=== PATIENT | female | born 1975 | race Caucasian/White ===

== ENCOUNTER → 2016-11-07 | Outpatient (CLI) | payer BC ==
[~2016-11-07] MED LIST: PRENTAB26 PO
== END | disposition home or self-care (01) ==
LOC: C.PAPS 15:39
PROVIDERS: ATTEND Obstetrics & Gynecology
DX: Z01.411 Encounter for gynecological examination (general) (routine) with abnormal findings (principal); R87.610 Atypical squamous cells of undetermined significance on cytologic smear of cervix (ASC-US)

== ENCOUNTER → 2016-11-07 | Outpatient (CLI) | payer BC ==
[2016-11-11 01:58] LABS: CHLAMYDIA TRACH RNA*** NOT DETECTED (NOT DETECTED); GC (NEIS GONORRHOEAE)RNA** NOT DETECTED (NOT DETECTED); TRICHOMONAS VAGINALIS RNA** NOT DETECTED (NOT DETECTED)
== END | disposition home or self-care (01) ==
LOC: C.LAB1850 13:00
PROVIDERS: ATTEND Obstetrics & Gynecology
DX: Z01.419 Encounter for gynecological examination (general) (routine) without abnormal findings (principal); Z11.3 Encounter for screening for infections with a predominantly sexual mode of transmission; N89.8 Other specified noninflammatory disorders of vagina

== ENCOUNTER 2025-07-25 13:00 | Observation (INO) ==
--- NOTE | 2025-07-25 13:30 | Emergency Department Note ---
Impression & Plan Alcoholic intoxication, Anxiety and depression, Chest pain ED Provider Note NAME: MICHELLE OSMAN AGE: 50 SEX: F : 1975 ARRIVES VIA: Walk-In INFORMANT: Patient, ED PROVIDER(S): Wander Tijerina DO CHIEF COMPLAINT: Mental health evaluation HPI: The patient is a 50-year-old female who presented to the emergency department with her daughter. The patient presented for mental health evaluation. The patient states that she was drinking alcohol today. She is very evasive and will not answer questions for me. The patient states that she called the [facility] to be admitted there. She was told to come to the emergency department for medical clearance. The patient denies having any fevers. Patient denies having any chills. She is concerned that there is also something medical going on and is concerned because she is having chest pain. ROS: See above HPI for pertinent positives & negatives. A total of 10 systems reviewed and were otherwise negative. PAST MEDICAL HISTORY: See Below PAST SURGICAL HISTORY: See Below FAMILY HISTORY: See Below SOCIAL HISTORY: See Below HOME MEDICATIONS: See Below ALLERGIES: See Below VITALS: See Below PHYSICAL EXAMINATION: GENERAL: The patient is awake and alert. The patient is anxious and appears to be guarded. EYES: The conjunctivae are clear. The pupils are round and reactive. EARS, NOSE, MOUTH AND THROAT: The nose is without any evidence of any deformity. NECK: The neck is nontender and supple. RESPIRATORY: Normal respiratory effort is noted there is no evidence of wheezing rhonchi or rales CARDIOVASCULAR: Regular rate and rhythm noted there no murmurs rubs or gallops normal S1 normal S2. GASTROINTESTINAL: The abdomen is soft. Abdomen is nontender. MUSCULOSKELETAL/EXTREMITIES: There is no evidence of gross deformity full range of motion is noted in the hips and shoulders. SKIN: There is no obvious evidence of any rash. There are no petechiae, pallor or cyanosis noted. NEUROLOGIC: Patient is awake alert and oriented x3 strength is symmetric patellar reflexes are 2+ bilaterally PSYCH: The patient makes poor eye contact mostly evaluation. The patient would not answer questions about being suicidal. The patient is very guarded. Her affect is flat. MEDICAL DECISION MAKING: The patient is a 50-year-old female who presented to the emergency department with her daughter for mental-health evaluation. The patient was very guarded. She would not give much history initially. She did admit that she was very anxious and that she was having chest pain. She also admitted to alcohol use this morning. The patient was felt to be at risk for a mental health issue. She could not be medically cleared because of the degree of alcohol elevation. She was also felt to be at high risk for withdrawal. She was evaluated by the mental health insurance case manager. She was not able to be formally evaluated from a mental health standpoint. For this reason I discussed her condition with the on-call [facility]. They have agreed to evaluate the patient in the emergency department for further management and disposition. Triage Nursing notes reviewed. Prior medical records reviewed Vital Signs: reviewed and remarkable for no significant abnormalities Differential diagnosis: Mood disorder, infection, hypoglycemia, electrolyte abnormalities, cardiac sources, intracerebral event, toxicologic, trauma, neurologic, as well as other pathologies. ER treatment provided: See below Diagnostics interpreted by me: ECG: EKG was obtained in the emergency department. My interpretation is normal sinus rhythm at 88 bpm. There was no ectopy. Nonspecific ST abnormalities were appreciated. This was compared to a tracing from May 16, 2023. No changes were noted. Cardiac Monitoring: An order was placed for continuous cardiac monitoring. The monitor shows a rate of 90 bpm with sinus rhythm. Laboratory studies: As stated above and show below. Imaging studies: See below. Radiographic imaging was reviewed by myself Consultation(s): I discussed this case with Dr. Mercedes who is on-call for the [facility] group. Past Med/Surg History Problem List (Updated 07/25/25 @ 15:57 by Selam Jones PA-C) At risk for alcohol withdrawal Medical History Alcohol abuse No pertinent past medical history Surgical History No pertinent past surgical history Family History Other No pertinent family history in first degree relatives Social History Smoking Status: Never smoker Tobacco Type: Cigarettes Hx Alcohol Use: Yes Hx Substance Use: No Preferred Language: Turkish marital status: Current Living Situation: Family current occupational status: employed Feels Safe at Home: Yes Allergies Allergies Allergy/AdvReac Type Severity Reaction Status Date / Time pollen extracts Allergy Mild sneezing Verified 12/14/23 10:29 Home Meds Home Medications Medication Instructions Recorded Confirmed multivitamin 1 tab PO DAILY 05/16/23 01/18/25 Results & Data (ED) Vital Signs Vital Signs - 24 hr 07/25/25 13:22 07/25/25 13:49 07/25/25 13:49 Temperature 36.4 C L Temperature Source Oral Pulse Rate 109 H 113 H Pulse Rate [Apical] 110 H Respiratory Rate 22 Respiratory Effort / Characteristics Non-Labored Spontaneous Non-Labored Spontaneous Respiratory Depth Normal Normal Respiratory Pattern Regular Regular Blood Pressure 125/86 Blood Pressure [Left Arm] 127/95 Blood Pressure Mean 99 Blood Pressure Mean [Left Arm] 105 Blood Pressure Position Sitting Blood Pressure Position [Left Arm] Sitting Pulse Oximetry 96 99 99 Oxygen Delivery Method Room Air Room Air Room Air Sepsis Recent Fever Within 48 Hours No Sepsis New/Unexplained Change in Mental Status N/A Sepsis Action Taken by Nursing No Action Required 07/25/25 14:02 07/25/25 14:44 Temperature Temperature Source Pulse Rate 94 H Pulse Rate [Apical] 91 H Respiratory Rate 18 Respiratory Effort / Characteristics Non-Labored Spontaneous Respiratory Depth Normal Respiratory Pattern Regular Blood Pressure Blood Pressure [Left Arm] 130/85 Blood Pressure Mean Blood Pressure Mean [Left Arm] 100 Blood Pressure Position Blood Pressure Position [Left Arm] Sitting Pulse Oximetry 97 Oxygen Delivery Method Room Air Sepsis Recent Fever Within 48 Hours Sepsis New/Unexplained Change in Mental Status Sepsis Action Taken by [facility] Medications Current Medication List: was personally reviewed by me Laboratory Data Attestation: I reviewed the patient's lab results. 07/25/25 13:30 07/25/25 13:30 Lab Results 07/25/25 07/25/25 07/25/25 Range/Units 13:18 13:30 13:32 WBC 3.72 L (4.8-10.8) K/ul RBC 4.94 (4.20-5.40) M/uL Hgb 13.6 (12.0-16.0) g/dL Hct 38.4 (37.0-47.0) % MCV 77.7 L (80.0-100.0) fL MCH 27.5 (25.0-34.0) pg MCHC 35.4 (32.0-36.0) g/dL RDW Std Deviation 39.3 (36.4-46.3) fL RDW Coeff of [place] 14.1 (11.5-14.5) % Plt Count 249 (130-400) K/uL MPV 9.2 L (9.4-12.4) fL Immature Gran % (Auto) 0.3 % Neut % (Auto) 44.3 % Lymph % (Auto) 47.6 % [place] % (Auto) 6.2 % Eos % (Auto) 0.3 % Baso % (Auto) 1.3 % Neut # (Auto) 1.65 (1.40-6.50) K/uL Lymph # (Auto) 1.77 (1.20-3.40) K/uL [place] # (Auto) 0.23 (0.11-0.59) K/uL Eos # (Auto) 0.01 (0.00-0.50) K/uL Baso # (Auto) 0.05 (0.00-0.20) K/uL Immature Gran # (Auto) 0.01 (0.01-0.20) K/uL PT 12.3 H (9.0-12.0) Seconds INR 1.2 H (0.9-1.1) Sodium 136 (136-145) mmol/L Potassium 3.9 (3.5-5.1) mmol/L Chloride 99 (98-107) mmol/L Carbon Dioxide 24 (21-32) mmol/L Anion Gap 13 H (3-11) BUN 5 L (6-23) mg/dl Creatinine 0.56 L (0.6-1.2) mg/dl Est Cr Clr Drug Dosing Not Reportable eGFR 112.51 BUN/Creatinine Ratio 8.9 L (10-20) Glucose 107 H (70-99(Fasting)) mg/dl Calcium 8.2 L (8.6-10.3) mg/dl Magnesium 2.2 (1.7-2.4) mg/dl Total Bilirubin 0.7 (0.2-1.0) mg/dl AST 38 (13-39) U/L ALT 29 (7-52) U/L Alkaline Phosphatase 59 (34-104) U/L Total Creatine Kinase 355 H (26-192) U/L Troponin I High Sens 2.9 (0-14) pg/ml Total Protein 7.3 (6.0-8.3) gm/dl Albumin 4.3 (3.4-5.0) gm/dl Globulin 3.0 (2.5-4.0) gm/dl Albumin/Globulin Ratio 1.4 (0.9-2) Lipase 71 (11-82) U/L HCG, Qual Negative (Negative) Urine Color Yellow Urine Appearance Clear (Clear) Urine pH 8.0 H (4.5-7.5) Ur Specific [place] 1.004 (1.000-1.030) Urine Protein Negative (Negative) Urine Glucose (UA) Negative (Negative) Urine Ketones Negative (Negative) Urine Blood 1+ H (Negative) Urine Nitrite Negative (Negative) Urine Bilirubin Negative (Negative) Urine Urobilinogen Negative (Negative) Ur Leukocyte Esterase Trace H (Negative) Urine WBC (Auto) 0-5 (0-5) /hpf Urine RBC (Auto) 0-2 (0-2) /hpf U Hyaline Cast (Auto) 0-2 (0-2) /lpf U Epithel Cells (Auto) 0-2 (0-2) /hpf Urine Bacteria (Auto) None Seen (None Seen) Urine Comment Salicylates < 3.0 L (3.0-30) mg/dl Urine Opiates Screen Neg (Neg) Ur Methadone, Qual Neg (Neg) Urine Fentanyl Screen Neg (Neg) Acetaminophen < 3 L (10-30) ug/ml Urine Barbiturates Neg (Neg) Ur Phencyclidine (PCP) Neg (Neg) U Amphetamin/Meth Scrn Neg (Neg) MDMA (Ecstasy) Screen Neg (Neg) U Benzodiazepines Scrn Neg (Neg) Ur Cocaine Metabolite Neg (Neg) U Marijuana (THC) Screen Neg (Neg) Ethyl Alcohol mg/dL 371.6 H (<10.0) mg/dl SARS-CoV-2, RNA, NAAT NEGATIVE (NEGATIVE) Administered Medications Discontinued Medications Sodium Chloride (Nss) 500 mls @ 999 mls/hr IV .Q31M VIDAL Stop: 07/25/25 14:00 Last Infusion: 07/25/25 14:33 Dose: Infused Documented By: Admin: 07/25/25 13:43 Dose: 999 mls/hr Documented By: DIAN Thiamine HCl 200 mg/ Sodium (Chloride) 52 mls @ 210 mls/hr IV NOW STA Stop: 07/25/25 13:37 Last Infusion: 07/25/25 14:03 Dose: Infused Documented By: Admin: 07/25/25 13:43 Dose: 210 mls/hr Documented By: DIAN Lorazepam (Lorazepam 1 Mg/1 Ml Syr Ed Inj Use) 0.5 mg IV ONE STA Stop: 07/25/25 13:50 Last Admin: 07/25/25 14:09 Dose: 0.5 mg Documented By: DIAN Imaging Data Attestation: I personally reviewed and interpreted this imaging study as follows: My Impression: 1 view chest x-ray was obtained in the emergency department. My interpretation is no free air or definite infiltrate, final report below. Radiologist's Impression: Chest X-Ray 07/25/25 13:24 Single frontal view of the chest No comparison Impression frontal view of the chest Comparison made with prior exam dated 05/04/2020 Impression No acute pulmonary pathology. Electronically signed by Kevin Gregg 07-25-2025 2:26 PM Discharge Plan Visit Data Chief Complaint: Mental Health Evaluation Stated Complaint: PSYCH EVAL ED Provider: Wander Tijerina Discharge Problem: Alcoholic intoxication, Anxiety and depression, Chest pain Patient Disposition: Being Evaluated by Hospitalist Condition: Fair Forms Stand Alone Forms: My [facility], Suicide Prevention Resources Prescriptions Prescriptions: No Action multivitamin Tablet 1 tab PO DAILY Referrals Referrals: PCP,NO [Physician] -
[2025-07-25] MEDS: THIAMINE HCL 200 MG in SODIUM CHLORIDE 0.9% 50 ML IV STA (13:43)
[2025-07-25] MEDS: SODIUM CHLORIDE 0.9% 500 ML IV SCH (13:43)
[2025-07-25 13:44] LABS: Hematocrit (blood only) 38.4 % (37.0-47.0); Hemoglobin 13.6 g/dL (12.0-16.0); Immature Granulocytes # (auto) 0.01 K/uL (0.01-0.20); Immature Granulocytes % (auto) 0.3 %; Mean Corpuscular Hemoglobin 27.5 pg (25.0-34.0); Mean Corpuscular Volume 77.7 fL (80.0-100.0); Platelet Count 249 K/uL (130-400); RDW Standard Deviation 39.3 fL (36.4-46.3); Red Blood Count 4.94 M/uL (4.20-5.40); White Blood Count 3.72 K/ul (4.8-10.8)
[2025-07-25 13:57] LABS: Appearance Urine Clear (Clear); Bacteria Urine Automated None Seen (None Seen); Cast Urine Automated 0-2 /lpf (0-2); Epithelial Cell Urine Auto 0-2 /hpf (0-2); Glucose Urine UA Negative (Negative); RBC Urine Automated 0-2 /hpf (0-2); WBC Urine Automated 0-5 /hpf (0-5)
[2025-07-25 14:00] LABS: Alanine Aminotransferase 29 U/L (7-52); Albumin Globulin Ratio 1.4 (0.9-2); Albumin Level 4.3 gm/dl (3.4-5.0); Alkaline Phosphatase 59 U/L (34-104); Anion Gap 13 (3-11); Bilirubin,Total 0.7 mg/dl (0.2-1.0); Blood Urea Nitrogen 5 mg/dl (6-23); Calcium 8.2 mg/dl (8.6-10.3); Carbon Dioxide 24 mmol/L (21-32); Chloride 99 mmol/L (98-107); Creatine Kinase 355 U/L (26-192); Globulin 3.0 gm/dl (2.5-4.0); Glucose 107 mg/dl (70-99(Fasting)); Lipase 71 U/L (11-82); Magnesium 2.2 mg/dl (1.7-2.4); Potassium 3.9 mmol/L (3.5-5.1); Sodium 136 mmol/L (136-145); Total Protein 7.3 gm/dl (6.0-8.3)
[2025-07-25 14:01] LABS: Pregnancy Test, Serum Negative (Negative)
[2025-07-25 14:09] LABS: INR 1.2 (0.9-1.1); Prothrombin Time 12.3 Seconds (9.0-12.0)
[2025-07-25] MEDS: LORazepam 1 MG/1 ML SYR ED Inj Use IV STA ×2 (14:09→16:18)
[2025-07-25 14:20] LABS: Acetaminophen < 3 ug/ml (10-30); Salicylate < 3.0 mg/dl (3.0-30)
--- NOTE | 2025-07-25 14:29 | XRay Report ---
Single frontal view of the chest No comparison Impression frontal view of the chest Comparison made with prior exam dated 05/04/2020 Impression No acute pulmonary pathology. Electronically signed by Kevin Gregg 07-25-2025 2:26 PM
[2025-07-25 14:53] LABS: Amphetamines+Metham, Urine Neg (Neg); MDMA (Ecstacy), Urine Neg (Neg); Marijuana, Urine Neg (Neg)
--- NOTE | 2025-07-25 15:56 | History & Physical Report ---
Date of Service July 25, 2025 Assessment & Plan (1) Alcoholic intoxication: (2) At risk for alcohol withdrawal: (3) Alcohol abuse: Plan Ms. Alanis is a 50y/o F with PMHx significant for alcohol abuse, anxiety and major depressive disorder who presented to the ED for mental health evaluation. Patient had called [facility] earlier today for voluntary admission. She was directed to the come to the ED for medical clearance 2/2 alcohol intoxication given her risk of alcohol withdrawal. Alcohol intoxication At risk for alcohol withdrawal Major depressive disorder and anxiety EtOH 371.6 on arrival; pt exhibiting early withdrawal sx including anorexia, nausea, tachycardia and anxiety at time of admission. No prior hospitalizations for alcohol withdrawal per pt or chart review. Describes heavy alcohol use since last weekend, last drink being earlier today [employer]. No documented history of alcohol withdrawal seizures. -Had previous episode during prior withdrawal period where she experienced BUE contractures x several minutes, resolved spontaneously. No reported LOC. -Never was seen by any medical underwriter following this event. Doubt true seizure activity. Sustained fall with (+) head strike yesterday >> fall from standing on porch, was heavily intoxicated. -Will check head CT, cervical spine CT given this history. If imaging clear, will proceed with initiation of Librium course per [facility] protocol. Denies any suicidal ideations however was somewhat elusive with questioning >> 1-to-1 ordered for now until psych sees pt. Appreciate psych consult, pt not currently on any psych meds. -Was on Lexapro in the past but reports this "didn't work for her" >> made her "sluggish" and drowsy. Elevated CK Likely in light of recent fall. S/p 0.5L NSS in the ED, follow repeat CK level in AM. Routine health maintenance Hgb A1c 4.8% as of May 2025. Lipid panel, 06/2025: triglycerides 54, total cholesterol 178, HDL 60, LDL 107. DVT Prophylaxis: SCDs/TEDs only for now pending head CT results Code Status: FULL CODE PCP: Corina Ansari MD Disposition: Admit to med/telemetry Patient seen in collaboration with Dr. Mercedes. Please see addendum. I spent a total of 68 minutes coordinating, documenting, and providing care for this patient excluding time spent in the performance of separately billed services or time spent by another provider/QHP. This included personally reviewing all current laboratories and imaging studies, medical reconciliation, outpatient chart review and discussion with specialists. This chart was completed in part utilizing Speech Voice Recognition Software. Grammatical errors, random word insertions, pronoun errors, and incomplete sentences are an occasional consequence of this system due to software limitations, ambient noise, and hardware issues. Any formal questions or concerns about the content, text, or information contained within the body of this dictation should be directly addressed to the provider for clarification. History of Present Illness Chief Complaint: Mental health evaluation Acute alcohol intoxication Primary Care Provider: Corina Ansari MD Ms. Alanis is a 50y/o F with PMHx significant for alcohol abuse, anxiety and major depressive disorder who presented to the ED for mental health evaluation. Patient had called [facility] earlier today for voluntary admission. She was directed to the come to the ED for medical clearance 2/2 alcohol intoxication given her risk of alcohol withdrawal. Significant history of alcohol abuse. Was sober x 40 days prior to this past weekend. Started drinking heavily last weekend. Most recent alcohol consumption earlier today. Has been experiencing significant anxiety and depression which prompted her to look into inpatient adult psychiatric treatment today. Has been to inpatient alcohol rehabilitation before. Denies any prior hospitalizations for alcohol withdrawal however does admit to prior experiences with withdrawal symptoms. No documented history of alcohol withdrawal seizures however she describes a previous episode where she was actively withdrawing and had experienced BUE contractures lasting several minutes. Did not lose consciousness with this, unclear if true seizure. Contractures resolved spontaneously and she was never evaluated in the ED for this. Currently denies any suicidal or homicidal ideations. Sustained a fall yesterday on her porch. Fell from standing, was significantly intoxicated at the time. Positive head strike. Was able to get off of the floor herself. No further trauma mentioned. Patient seen in the ED with Dr. Mercedes. Allergies Allergy/AdvReac Type Severity Reaction Status Date / Time pollen extracts Allergy Mild sneezing Verified 12/14/23 10:29 Home Medications Medication Instructions Recorded Confirmed Type multivitamin 1 tab PO DAILY 05/16/23 07/25/25 History Past Med/Surg History Problem List At risk for alcohol withdrawal Medical History Alcohol abuse No pertinent past medical history Surgical History No pertinent past surgical history Family History Mother , Age 36 Cancer Unknown origin Father , Age 66 Heart disorder Aunt Thyroid cancer Aunt Breast cancer Uncle Brain cancer Social History (Updated 07/25/25 @ 16:16 by Selam Jones PA-C) Smoking Status: Former smoker Tobacco Type: Cigarettes Hx Alcohol Use: Yes Hx Substance Use: No Preferred Language: Nepali marital status: Current Living Situation: Family current occupational status: employed Feels Safe at Home: Yes Review of Systems Review of Systems: At least ten systems reviewed and negative, except as noted in the subjective section. Physical Exam Physical Exam: Please refer to Dr. Mercedes's addendum for physical examination findings. Results & Data Results & Data Vital Signs (Past 12 Hours) Vital Signs Temp Pulse Pulse Resp BP BP Pulse Ox 07/25/25 14:44 91 H 18 130/85 97 07/25/25 14:02 94 H 07/25/25 13:49 113 H 22 99 07/25/25 13:49 110 H 22 127/95 99 07/25/25 13:22 36.4 C L 109 H 22 125/86 96 O2 Del Method 07/25/25 14:44 Room Air 07/25/25 14:02 07/25/25 13:49 Room Air 07/25/25 13:49 Room Air 07/25/25 13:22 Room Air Laboratory Results Short CBC 07/25/25 Range/Units 13:30 WBC 3.72 L (4.8-10.8) K/ul Hgb 13.6 (12.0-16.0) g/dL Hct 38.4 (37.0-47.0) % Plt Count 249 (130-400) K/uL BMP 07/25/25 13:30 Sodium 136 Potassium 3.9 Chloride 99 Carbon Dioxide 24 BUN 5 L Creatinine 0.56 L Glucose 107 H Calcium 8.2 L Cardiac Enzymes 07/25/25 Range/Units 13:30 Total Creatine Kinase 355 H (26-192) U/L Liver Function 07/25/25 Range/Units 13:30 Total Bilirubin 0.7 (0.2-1.0) mg/dl AST 38 (13-39) U/L ALT 29 (7-52) U/L Alkaline Phosphatase 59 (34-104) U/L Albumin 4.3 (3.4-5.0) gm/dl Urine 07/25/25 Range/Units 13:18 Urine Color Yellow Urine Appearance Clear (Clear) Urine pH 8.0 H (4.5-7.5) Ur Specific [place] 1.004 (1.000-1.030) Urine Protein Negative (Negative) Urine Glucose (UA) Negative (Negative) Diagnostic Findings Chest X-Ray 07/25/25 13:24 Single frontal view of the chest No comparison Impression frontal view of the chest Comparison made with prior exam dated 05/04/2020 Impression No acute pulmonary pathology. Electronically signed by Kevin Gregg 07-25-2025 2:26 PM Medications Administered Discontinued Medications Sodium Chloride (Nss) 500 mls @ 999 mls/hr IV .Q31M VIDAL Stop: 07/25/25 14:00 Last Infusion: 07/25/25 14:33 Dose: Infused Documented By: Admin: 07/25/25 13:43 Dose: 999 mls/hr Documented By: DIAN Thiamine HCl 200 mg/ Sodium (Chloride) 52 mls @ 210 mls/hr IV NOW STA Stop: 07/25/25 13:37 Last Infusion: 07/25/25 14:03 Dose: Infused Documented By: Admin: 07/25/25 13:43 Dose: 210 mls/hr Documented By: DIAN Lorazepam (Lorazepam 1 Mg/1 Ml Syr Ed Inj Use) 0.5 mg IV ONE STA Stop: 07/25/25 13:50 Last Admin: 07/25/25 14:09 Dose: 0.5 mg Documented By: DIAN Supervising Physician Co-Signing Physician Notes Pt seen and examined by nc, care coordinated w/ Venice Jones PA-C, pls refer to her note above for further detail. Pt is a 50y/o F with hx of alcohol abuse, anxiety and major depressive disorder who presents to the ED for mental health evaluation. Patient had called [facility] earlier today for voluntary admission. She was directed to come to the ED for medical clearance 2/2 alcohol intoxication given her risk of alcohol withdrawal. Pt reports she was sober x 40 days prior to this past weekend. Started drinking heavily last weekend. Most recent alcohol consumption earlier today. Pt's daughter present at the bedside and also helps provide hx. Pt denies any fever, chills, chest pain or shortness of breath. denies any sick contacts, reports having some rhinorrhea. Denies any abdominal pain, n/v, or diarrhea. Denies any blood in the stool. Reports she fell yesterday from standing position and hit the back of her head. She was on her porch and says she was intoxicated. --> Will obtain CT head and neck Currently pt is sitting up in bed, awake, and able to answer questions appropriately, she is cooperative w/ questions and with exam. Heart sounds mildly tachycardic, lung sounds clear, abdomen soft and nontender in all quadrants. No LE edema and pt is moving extremities w/o difficulty. No trauma to head noted on exam. In ED blood work unremarkable except for mildly elevated CPK, will repeat tmrw. UA negat., CXR negat. Plan to start librium withdrawal protocol as soon as head imaging obtained and negat. for any acute abnormality. Will plan to cont. to monitor on tele. MD Daren. (1) Alcoholic intoxication Complication of substance-induced condition: uncomplicated Qualified Code(s): F10.920 - Alcohol use, unspecified with intoxication, uncomplicated
[2025-07-25] MEDS ORDERED: chlordiazePOXIDE ALCOHOL WITHDRAWL 50MG PO STA (17:17)
--- NOTE | 2025-07-25 18:02 | CT Scan Report ---
CT CERVICAL SPINE WITHOUT CONTRAST: HISTORY: TRAUMA TECHNIQUE: Noncontrast CT examination of the cervical spine is performed. Coronal and sagittal reformats were created. COMPARISON: Cervical spine CT May 04, 2020 FINDINGS: CERVICAL SPINE: There is no significant vertebral body height loss. No acute traumatic fracture identified. There is no significant spondylolisthesis. Multilevel degenerative changes characterized by disc osteophyte complex, bilateral facet and uncovertebral hypertrophy resulting and neural foraminal narrowing at multiple levels, worst at mid to lower spine. Visualized soft tissues of neck are unremarkable. Visualized lung apex is clear. IMPRESSION: No acute traumatic fracture of the cervical thoracic lumbar spine. Multilevel degenerative changes as above Electronically signed by Attila Cintron 07-25-2025 6:02 PM
--- NOTE | 2025-07-25 18:02 | CT Scan Report ---
CT HEAD: HISTORY: Trauma TECHNIQUE: Noncontrast CT examination of the head is performed. Coronal and sagittal reformats were created. COMPARISON: Brain CT May 04, 2020 FINDINGS: There is no evidence of intracranial hemorrhage, focal mass effect or midline shift. No fluid collection is identified. The ventricular system is midline and symmetric. No evidence of acute major vascular territory infarction. No calvarial fracture is identified. The paranasal sinuses and mastoids are well aerated. IMPRESSION: No acute intracranial process identified. Electronically signed by Attila Cintron 07-25-2025 6:02 PM
[2025-07-25] MEDS ORDERED: ONDANSETRON INJ 2 MG/ML 2 ML VIAL IV PRN (18:22)
[2025-07-25] MEDS ORDERED: POLYETHYLENE (MIRALAX) 17 GM PACK PO PRN (18:22)
[2025-07-25] MEDS ORDERED: MAGNESIUM HYDROXIDE SUSP 30 ML UDC PO PRN (18:22)
[2025-07-26 04:44] LABS: Hematocrit (blood only) 34.5 % (37.0-47.0); Hemoglobin 11.9 g/dL (12.0-16.0); Mean Corpuscular Hemoglobin 27.7 pg (25.0-34.0); Mean Corpuscular Volume 80.2 fL (80.0-100.0); Platelet Count 200 K/uL (130-400); RDW Standard Deviation 40.6 fL (36.4-46.3); Red Blood Count 4.30 M/uL (4.20-5.40); White Blood Count 5.07 K/ul (4.8-10.8)
[2025-07-26 05:05] LABS: Alanine Aminotransferase 24.0 U/L (7-52); Albumin Globulin Ratio 1.4 (0.9-2); Albumin Level 3.6 gm/dl (3.4-5.0); Alkaline Phosphatase 49.0 U/L (34-104); Anion Gap 8.0 (3-11); Bilirubin,Total 1.3 mg/dl (0.2-1.0); Blood Urea Nitrogen 13.0 mg/dl (6-23); Calcium 8.2 mg/dl (8.6-10.3); Carbon Dioxide 26.0 mmol/L (21-32); Chloride 100.0 mmol/L (98-107); Creatine Kinase 252.0 U/L (26-192); Creatinine Clr Calc Pharmacy 94.3 ml/min; Globulin 2.5 gm/dl (2.5-4.0); Glucose 100.0 mg/dl (70-99(Fasting)); Magnesium 2.1 mg/dl (1.7-2.4); Potassium 3.7 mmol/L (3.5-5.1); Sodium 134.0 mmol/L (136-145); Total Protein 6.1 gm/dl (6.0-8.3)
[2025-07-26] MEDS: SODIUM CHLORIDE 0.9% 1,000 ML IV SCH (07:24)
[2025-07-26 07:29] VITALS: TEMP 98.4
[2025-07-26] MEDS: MULTIVITAMIN TAB PO SCH (08:44)
[2025-07-26] MEDS: THIAMINE HCL 300 MG in SODIUM CHLORIDE 0.9% 50 ML IV SCH (08:44)
[2025-07-26] MEDS: FOLIC ACID 1 MG TAB PO SCH (08:45)
[2025-07-26] MEDS: ACETAMINOPHEN 325 MG TAB PO PRN (08:52)
[2025-07-26] MEDS: LORazepam 0.5 MG TAB PO STA (09:25)
[2025-07-26 10:35] VITALS: RESP 20
--- NOTE | 2025-07-26 12:47 | Psychiatric Consultation ---
Date of Consultation July 26, 2025 Impression / Recommendations Impression Diagnostically consistent with alcohol use disorder as well as unspecified depression and anxiety likely a combination of substance-induced as well as adjustment disorder with depressed and anxious mood. Acute risk of self-harm is low given denial of SI and no longer with intoxication. Chronic risk of self- harm and harm to others is slightly increased due to substance use with substance use treatment being the most significant modifiable risk factor to reduce acute and chronic risk. They do not meet 302 criteria for inpatient psychiatric treatment at this time, nor is she interested in inpatient psych iatric treatment rather recommendation is for dual diagnosis or residential substance use treatment. They are not interested in residential treatment at this time but are agreeable to consider outpatient services to help with substance use and medication assisted treatment. Liver enzymes reviewed and stable for treatment with naltrexone and no concurrent opioids. Overall, I spent a total of 60 minutes with this case including review of chart records, review of labwork, review of EKG QTc, direct evaluation of the patient at bedside, counseling the patient, discussion of the patient with the Nurse and with the hospitalist provider, discussion with the psychiatric liason during clinical rounds, review of collateral historian information from the family and documentation in the electronic health record. (1) Alcohol use disorder: (2) Adjustment disorder with mixed anxiety and depressed mood: Plan -Can leave AMA, no 302 criteria -Patient is not an imminent danger to self or others and does not meet criteria for involuntary psychiatric commitment -Discussed outpatient resources for dual-diagnosis like [facility], [facility] -Encouraged [facility] participation -Reviewed safety planning and recommended securing lethal means with patient and her daughter if depression persists, worsens, doesn't improve or should SI occur -Continue AWSS as well as thiamine and folic acid -Medications: * start naltrexone 50mg qd for alcohol use disorder * Once through acute withdrawal start sertraline 50mg daily, ensure no worsening of hyponatremia * consider one of these off-label medications for alcohol use disorder as harm reduction strategy if needed in the future: * gabapentin 300mg TID (titrate up to 900mg TID) * topiramate 25mg BID (for one week, then increase to 50mg BID and titrate up to 200mg BID as needed) * baclofen 5mg TID (titrate up to 30mg daily) Psych History Identifying Data Ladan Alanis is a 50y/o woman with PMHx significant for alcohol use disorder, anxiety and depression who presented to the ED for mental health evaluation for increased alcohol use and desiring medication management. Psychiatry consulted for alcohol use and depression and anxiety. Chief Complaint "I wanted to get safely off alcohol and get better at not caving in". History of Present Illness Ladan presented to the hospital seeking medical clearance for possible psychiatric admission to the [facility] but was deemed to require medical admission due to alcohol intoxication and elevated risk of alcohol withdraw. She reports that her encouraged her to seek treatment at the [facility] as she wanted to get on a medication to help her "get better at not caving in" and relapsing on alcohol use. She has been drinking alcohol for many years with periods of sobriety and then periods of increased use. She had recently had a sustained period of sobriety for 40 days but relapsed about 5 days ago which she views as due to "lack of willpower", "the urge to drink" and "thinking I deserve a reward but then I can never stop after just 1". Reports she has been drinking multiple bottles of wine per day over the last 5 days. She finds that she most often relapses or struggles without drinking because it can mean that she loses a lot of her social life and finds that "that is the hardest part about not dri nking". She references multiple life stressors including financial difficulties, her 's alcohol use, loneliness during her period of sobriety due to social isolation from her to avoid being around alcohol and parenting demands of 2 young children with multiple activities and multiple jobs. She notes "I have 0 time". However she is willing to consider therapy especially if it could work around her demanding schedule. She is not interested in residential treatment due to need to be home for her children. She reports that generally "I am a very happy person" but lately "life has been difficult and I have a hard time dealing with that". She is interested in "medicine to cheer me up" and "something to help may be better and not caving in". She denies any thoughts of suicide. Reports strong reasons for living including her kids, her garden and enjoying her hobbies. She finds her anxiety is "situational". Substance use and psychiatric history reviewed. History of residential substance use treatment once in 2019. History of AA in the past though she does not find this helpful due to adventist format. No history of mat. History of Lexapro trial approximately 5 months and was not drinking during this time but she found it did not help with symptoms and lowered her motivation. No history of prior suicide attempts. Family history of paternal uncle who by suicide. Guns at home that she uses for hunting, she states she would never use these to harm herself. She does not have any current psychiatric outpatient provider nor current psychotherapist. Allergies Allergy/AdvReac Type Severity Reaction Status Date / Time pollen extracts Allergy Mild sneezing Verified 12/14/23 10:29 Home Medications Medication Instructions Recorded Confirmed Type multivitamin 1 tab PO DAILY 05/16/23 07/25/25 History Patient History Medical History Alcohol abuse No pertinent past medical history Surgical History No pertinent past surgical history Family History Mother , Age 36 Cancer Unknown origin Father , Age 66 Heart disorder Aunt Thyroid cancer Aunt Breast cancer Uncle Brain cancer Social History (Updated 07/25/25 @ 16:16 by Selam Jones PA-C) Smoking Status: Former smoker Tobacco Type: Cigarettes Hx Alcohol Use: Yes Hx Substance Use: No Preferred Language: Spanish marital status: Current Living Situation: Family current occupational status: employed Feels Safe at Home: Yes Physical Exam Vital Signs (Past 24 Hours): Last Vital Signs Temp 36.9 C 07/26/25 07:00 Pulse 74 07/26/25 10:33 Resp 20 07/26/25 10:33 BP 139/92 07/26/25 10:33 Pulse Ox 97 07/26/25 10:33 O2 Del Method Room Air 07/26/25 10:33 Results & Data (PSY) Medications Administered Acetaminophen (Acetaminophen 325 Mg Tab) 650 mg PO Q4H PRN PRN Reason: Pain or Fever Stop: 08/24/25 18:21 Last Admin: 07/26/25 08:52 Dose: 650 mg Documented By: anne Folic Acid (Folic Acid 1 Mg Tab) 1 mg PO QAM VIDAL Stop: 08/25/25 08:59 Last Admin: 07/26/25 08:45 Dose: 1 mg Documented By: anne Thiamine HCl 300 mg/ Sodium (Chloride) 53 mls @ 210 mls/hr IV QAM VIDAL Stop: 08/25/25 08:59 Last Infusion: 07/26/25 09:00 Dose: Infused Documented By: anne Admin: 07/26/25 08:44 Dose: 210 mls/hr Documented By: anne Sodium Chloride (Nss) 1,000 mls @ 100 mls/hr IV .Q10H VIDAL Stop: 07/26/25 17:29 Last Admin: 07/26/25 07:24 Dose: 100 mls/hr Documented By: anne Multivitamins (Multivitamin Tab) 1 tab PO QAM VIDAL Stop: 08/25/25 08:59 Last Admin: 07/26/25 08:44 Dose: 1 tab Documented By: anne Coding Level of Care Code 93579 IN/OBS CONSULT LVL 4,60M Diagnoses Alcohol use disorder F10.90 Adjustment disorder with mixed anxiety and depressed mood F43.23
--- NOTE | 2025-07-26 13:53 | Discharge Summary ---
Discharge Summary Date of Service July 26, 2025 Principal Dx & Hospital Course #1 = Principal Diagnosis (1) Alcoholic intoxication: (2) At risk for alcohol withdrawal: (3) Alcohol abuse: Plan Ms. Alanis is a 50y/o F with PMHx significant for alcohol abuse, anxiety and major depressive disorder who presented to the ED for mental health evaluation. [facility]. She was directed to the come to the ED for medical clearance 2/2 alcohol intoxication given her risk of alcohol withdrawal. Alcohol intoxication At risk for alcohol withdrawal Major depressive disorder and anxiety Describes heavy alcohol use since last weekend, last drink being earlier today [employer]. EtOH 371.6 on arrival; was started on Librium taper course per AWSS protocol after head/cervical spine CT imaging came back negative. No prior hospitalizations for alcohol withdrawal per pt or chart review. Minimal withdrawal sx appreciated on exam today >> some anxiousness, AWSS minimal. Pt seen by psych: Diagnostically c/w AUD as well as unspecified depression and anxiety likely a combination of substance-induced as well as adjustment disorder with depressed and anxious mood. Pt with low acute risk of self-harm, not meeting criteria for involuntary psych commitment (no 302 criteria) nor is she interested in inpatient psych treatment. Pt wishing to be discharged home >> cleared by psych. "Discussed outpatient resources for dual-diagnosis like [facility], [facility]. Encouraged [facility] participation. Reviewed safety planning and recommended securing lethal means with patient and her daughter if depression persists, worsens, doesn't improve or should SI occur." Psych recommending naltrexone 50mg daily, Zoloft 50mg daily. "Consider one of these off-label medications for alcohol use disorder as harm reduction strategy if needed in the future:" * gabapentin 300mg TID (titrate up to 900mg TID) * topiramate 25mg BID (for one week, then increase to 50mg BID and titrate up to 200mg BID as needed) * baclofen 5mg TID (titrate up to 30mg daily) Elevated CK Likely in light of recent fall, IVF given with improvement. Routine health maintenance Hgb A1c 4.8% as of May 2025. Lipid panel, 06/2025: triglycerides 54, total cholesterol 178, HDL 60, LDL 107. PCP: Corina Ansari MD Disposition: Pt wishing to be DC'd back home, cleared by psych. Patient seen in collaboration with Dr. Mercedes. Please see addendum. I spent a total of 68 minutes coordinating, documenting, and providing care for this patient excluding time spent in the performance of separately billed services or time spent by another provider/QHP. This included personally reviewing all current laboratories and imaging studies, medical reconciliation, outpatient chart review and discussion with specialists. This chart was completed in part utilizing Speech Voice Recognition Software. Grammatical errors, random word insertions, pronoun errors, and incomplete sentences are an occasional consequence of this system due to software limitations, ambient noise, and hardware issues. Any formal questions or concerns about the content, text, or information contained within the body of this dictation should be directly addressed to the provider for clarification. Notes For Next Care Provider Recommend patient explores outpatient resources for dual-diagnosis such as [facility], [facility]. Medication Changes From Visit Naltrexone, Zoloft Admission HPI Per Admitting Provider Ms. Alanis is a 50y/o F with PMHx significant for alcohol abuse, anxiety and major depressive disorder who presented to the ED for mental health evaluation. Patient had [facility] today for voluntary [facility]. She was directed to the come to the ED for medical clearance 2/2 alcohol intoxication given her risk of alcohol withdrawal. Significant history of alcohol abuse. Was sober x 40 days prior to this past weekend. Started drinking heavily last weekend. Most recent alcohol consumption earlier today. Has been experiencing significant anxiety and depression which prompted her to look into inpatient adult psychiatric treatment today. Has been to inpatient alcohol rehabilitation before. Denies any prior hospitalizations for alcohol withdrawal however does admit to prior experiences with withdrawal symptoms. No documented history of alcohol withdrawal seizures however she describes a previous episode where she was actively withdrawing and had experienced BUE contractures lasting several minutes. Did not lose consciousness with this, unclear if true seizure. Contractures resolved spontaneously and she was never evaluated in the ED for this. Currently denies any suicidal or homicidal ideations. Sustained a fall yesterday on her porch. Fell from standing, was significantly intoxicated at the time. Positive head strike. Was able to get off of the floor herself. No further trauma mentioned. Patient seen in the ED with Dr. Mercedes. Admission Exam Per Admitting Provider Currently pt is sitting up in bed, awake, and able to answer questions appropriately, she is cooperative w/ questions and with exam. Heart sounds mildly tachycardic, lung sounds clear, abdomen soft and nontender in all quadrants. No LE edema and pt is moving extremities w/o difficulty. No trauma to head noted on exam. Discharge Exam General: Sitting up in bed, NAD, A&Ox3. Cooperative with questioning and with exam. HEENT: Normocephalic, atraumatic. Oropharynx normal. Respiratory: Normal respiratory effort, CTAB. Cardiovascular: RRR, normal peripheral pulses, no BLE edema. Abdomen/GI: Normal bowel sounds, soft, nontender to palpation in all quadrants. Extremities/Musculoskeletal: No cyanosis or clubbing, extremities motor strength intact, moves all extremities. Neurologic: No overt focal deficits, CN's II-XI not formally tested but appear grossly intact bilaterally. Updated Medication List Medication Instructions Recorded Confirmed Type multivitamin 1 tab PO DAILY 05/16/23 07/25/25 History lorazepam 0.5 mg tablet (Ativan) 0.5 mg PO BID PRN anxiety #4 tabs 07/26/25 Rx naltrexone 50 mg tablet 50 mg PO DAILY #30 tabs 07/26/25 Rx sertraline 50 mg tablet 50 mg PO DAILY #30 tabs 07/26/25 Rx thiamine HCl (vitamin B1) 100 mg 100 mg PO DAILY #30 tabs 07/26/25 Rx tablet Hospital Stay Data Consultations 07/25/25 15:49 ED Decision to Admit Stat 07/25/25 16:09 Consult Psychiatry Routine Diagnostic Imagining Performed 07/25/25 16:36 CT cervical spine wo con Stat FINDINGS: CERVICAL SPINE: There is no significant vertebral body height loss. No acute traumatic fracture identified. There is no significant spondylolisthesis. Multilevel degenerative changes characterized by disc osteophyte complex, bilateral facet and uncovertebral hypertrophy resulting and neural foraminal narrowing at multiple levels, worst at mid to lower spine. Visualized soft tissues of neck are unremarkable. Visualized lung apex is clear. IMPRESSION: No acute traumatic fracture of the cervical thoracic lumbar spine. Multilevel degenerative changes as above CT head/brain wo con Stat FINDINGS: There is no evidence of intracranial hemorrhage, focal mass effect or midline shift. No fluid collection is identified. The ventricular system is midline and symmetric. No evidence of acute major vascular territory infarction. No calvarial fracture is identified. The paranasal sinuses and mastoids are well aerated. IMPRESSION: No acute intracranial process identified. Discharge Instructions Given to Patient (Per Discharging Provider) Follow up with primary care doctor within 1 week. You were seen by psychiatry and recommended to start medications - sertraline and naltrexone. Take them as prescribed. Total Time Total Time Spent Total Time Spent (In Minutes): 68 Supervising Physician Co-Signing Physician Notes Pt seen and examined by me, care coordinated w/ B. DARION Jones, pls refer to her note above for further detail.Pt is a 50y/o F with hx of alcohol abuse, anxiety and major depressive disorder who presented to the ED for mental health evaluation. Pt was started on librium taper on admission, and was seen by psychiatry. Currently pt is sitting up in bed, awake, and able to answer questions appropriately, she is cooperative w/ questions and with exam. She reports feeling much better and would like to be discharged. Her daughter is present at the bedside and says that pt is much more clear in her mind and overall better - feels that it would be beneficial to be home as well so she could get some rest. Lungs sounds clear, heart sounds regular, abdomen soft and nontender in all quadrants. No LE edema and pt is moving extremities w/o difficulty. No trauma to head noted on exam. Psychiatry recommends to start on naltrexone and sertraline, and pt is in agreement with the plan. She will also closely follow up with PCP. MD Daren.
[2025-07-26 14:29] VITALS: BP 130/91; PULSE 89; O2SAT 99
--- NOTE | 2025-07-26 19:53 | Electrocardiogram Report ---
Test Reason : Blood Pressure : */* mmHG Vent. Rate : 88 BPM Atrial Rate : 88 BPM P-R Int : 116 ms QRS Dur : 88 ms QT Int : 388 ms P-R-T Axes : 18 58 20 degrees QTcB Int : 469 ms Normal sinus rhythm Normal ECG When compared with ECG of 29-Mar-2023 17:55, Nonspecific T wave abnormality now evident in Inferior leads Confirmed by Nemo Abrams (Kyara) on 07/26/2025 7:53:19 PM Referred By: REFERRED SELF Confirmed By: Nemo Abrams
== END 2025-07-26 14:30 | disposition home or self-care (01) | DRG 897 ==
LOC: ED 13:00 → EDINP 16:09 → INTOOBSV 16:09 → EDINP 18:23